=== PATIENT | male | born 1965 | race Caucasian/White ===

== ENCOUNTER 2020-05-26 11:30 | Emergency (ER) | payer OTHER ==
[2020-05-26 11:39] VITALS: BP 146/114; PULSE 92; RESP 18; TEMP 99
--- NOTE | 2020-05-26 12:29 | XR ---
Right leg HISTORY: Trauma and pain 2 views of the right leg Bone mineralization, joint spaces and alignment are maintained. Question soft tissue swelling. IMPRESSION: No fracture or dislocation.
[2020-05-26 12:47] LABS: Prothrombin Time 10.1 sec (9.0-12.0)
[2020-05-26 12:50] LABS: Basophils % (A) 0 %; Eosinophils % (A) 0 %; HCT 45.7 % (39.0-53.0); HGB 15.6 gm/dL (13.0-17.5); Lymphocytes # (A) 0.7 k/uL (1.0-4.8); Lymphocytes % (A) 10 %; MCH 30.6 pg (25.0-35.0); MCHC 34.1 g/dL (31.0-37.0); MCV 89.6 fL (80.0-100.0); Mean Platelet Volume 8.2; Monocytes # (A) 0.4 k/uL (0-1.0); Monocytes % (A) 6 %; Neutrophils # (A) 5.8 k/uL (1.3-7.7); Neutrophils % (A) 82 %; Platelet Count 278 k/uL (150-450); RDW 12.4 % (11.5-15.5); WBC 7.1 k/uL (3.8-10.6)
[2020-05-26 13:01] LABS: Partial Thromboplastin Time 21.7 sec (22.0-30.0)
--- NOTE | 2020-05-26 13:40 | ED ---
Lower Extremity Injury HPI - General Chief Complaint: Extremity Injury, Lower Stated Complaint: Near Syncope, R Leg Injury Source: patient, EMS Mode of arrival: EMS Limitations: no limitations - History of Present Illness Initial Comments: 55-year-old male presents emergency department with a contusion to his right lower externally. Patient states that he was walking his dog early this morning when the dog ran into his lower extremity. He did have some pain however no bruising or swelling was noted. The patient states he came into the house to shower. He then called and consulted his lower extremity which had significant swelling to the medial aspect. Patient denies being on any blood thinners. She has pain with ambulation but has been able to bear weight. Denies any knee or ankle pain. Denies head trauma. States that he cannot actually concern in all muscle use [place] therefore his called EMS. He denies any chest pain or shortness of breath. No other alleviating, precipitating or modifying factors - Related Data Home Medications Medication Instructions Recorded Confirmed No Known Home Medications 05/26/20 05/26/20 Allergies Allergy/AdvReac Type Severity Reaction Status Date / Time Penicillins Allergy Unknown Verified 05/26/20 12:53 Childhood Review of Systems ROS Statement: Those systems with pertinent positive or pertinent negative responses have been documented in the HPI. ROS Other: All systems not noted in ROS Statement are negative. Past Medical History Past Medical History: No Reported History History of Any Multi-Drug Resistant Organisms: None Reported Past Surgical History: Hernia Repair Past Psychological History: No Psychological Hx Reported Smoking Status: Never smoker Past Alcohol Use History: Occasional Past Drug Use History: Marijuana General Exam Limitations: no limitations Course Vital Signs 05/26/20 11:32 Temperature 99 F Pulse Rate 92 Respiratory 18 Rate Blood Pressure 146/114 O2 Sat by Pulse 99 Oximetry Medical Decision Making - Medical Decision Making Upon arrival the patient is placed into room 25. A thorough history and physical exam was performed. Bedside ultrasound was performed which demonstrates a subcutaneous fluid collection. Patient was sent for x-ray which them with rates no acute fractures. Patient was given Tylenol for pain control. Laboratory studies were conducted as the patient is reporting to presyncopal symptoms. Laboratory studies are normal. This time the patient is to rest, ice and elevate the extremity. Follow up with his primary care doctor in 2-4 days. Return to the emergency room for any new or worsening symptoms. Patient was discharged in stable condition - Lab Data Result diagrams: 05/26/20 12:15 Lab Results 05/26/20 05/26/20 Range/Units 12:15 12:15 WBC 7.1 (3.8-10.6) k/uL RBC 5.10 (4.30-5.90) m/uL Hgb 15.6 (13.0-17.5) gm/dL Hct 45.7 (39.0-53.0) % MCV 89.6 (80.0-100.0) fL MCH 30.6 (25.0-35.0) pg MCHC 34.1 (31.0-37.0) g/dL RDW 12.4 (11.5-15.5) % Plt Count 278 (150-450) k/uL MPV 8.2 Neutrophils % 82 % Lymphocytes % 10 % Monocytes % 6 % Eosinophils % 0 % Basophils % 0 % Neutrophils # 5.8 (1.3-7.7) k/uL Lymphocytes # 0.7 L (1.0-4.8) k/uL Monocytes # 0.4 (0-1.0) k/uL Eosinophils # 0.0 (0-0.7) k/uL Basophils # 0.0 (0-0.2) k/uL PT 10.1 (9.0-12.0) sec INR 1.0 (<1.2) APTT 21.7 L (22.0-30.0) sec Disposition Clinical Impression: Contusion of leg Disposition: HOME SELF-CARE Condition: Stable Instructions (If sedation given, give patient instructions): Contusion in Adults (ED) Additional Instructions: Take Motrin and Tylenol for pain. Rest, ice and elevate the extremity. Return to the emergency room for any new or worsening symptoms Is patient prescribed a controlled substance at d/c from ED?: No Referrals: Zac Bullard MD [Primary Care Provider] - 1-2 days Time of Disposition: 13:40
== END 2020-05-26 14:07 | disposition home or self-care (01) ==
LOC: EC 11:30
DX: S80.11XA Contusion of right lower leg, initial encounter (principal); Z88.0 Allergy status to penicillin; W22.8XXA Striking against or struck by other objects, initial encounter; Y93.K1 Activity, walking an animal; Y92.89 Other specified places as the place of occurrence of the external cause
CPT/HCPCS: 36415; 85025; 85610; 85730; 99284